=== PATIENT | male | born 1985 | race Caucasian/White ===

== ENCOUNTER 2017-02-07 18:50 | Emergency (ER) | payer BC ==
[2017-02-07 18:57] VITALS: BP 120/70
[2017-02-07] MEDS ORDERED: Tetan/Diph/Pertus SYR(Tdap)* 0.5 ML SYR(BOOSTRIX) use SYR IM ONE (19:39)
--- NOTE | 2017-02-07 20:40 | UC ---
Leonides Zavala Stephanie, scribed for Shawn Falcon MD on 02/07/17 at 2040 . Laceration HPI - HPI Summary HPI Summary: Pt is a 31 y/o M presenting to with a 1 cm laceration to his R 4th finger that occurred while using a mandolin. He reports his pain as a throbbing pain rated a 4 out of 10 in intensity. - History Of Current Complaint Chief Complaint: UCLaceration Stated Complaint: CUT FINGER Time Seen by Provider: 02/07/17 19:27 Hx Obtained From: Patient Laceration Location: Finger - R 4th finger Mechanism Of Injury: Sharp Trauma Onset/Duration: Sudden Onset Pain Intensity: 4 Pain Scale Used: 0-10 Numeric - Allergies/Home Medications Allergies/Adverse Reactions: Allergies Allergy/AdvReac Type Severity Reaction Status Date / Time No Known Allergies Allergy Verified 02/07/17 18:57 Home Medications: Home Medications Gzutabrlzoegc-Flzmejkmxp-Llema [Nyquil Severe Cold/Flu 5-6.25-10-325 mg/15Ml] 1 liq PO 02/07/17 [History] PMH/Surg Hx/FS Hx/Imm Hx Previously Healthy: Yes - Surgical History Surgical History: None - Family History Known Family History: Positive: Unknown - Pt denies family medical history when asked. - Social History Alcohol Use: Weekly Substance Use Type: None Smoking Status (MU): Never Smoked Tobacco Have You Smoked in the Last Year: No Review of Systems Skin: Other - skin on lacerated finger slightly discolored. Musculoskeletal: Other: All Other Systems Reviewed And Are Negative: Yes Physical Exam Triage Information Reviewed: Yes Vital Signs: Initial Vital Signs Temp 99.0 F 02/07/17 18:53 Pulse 94 02/07/17 18:53 Resp 18 02/07/17 18:53 BP 120/70 02/07/17 18:53 Pulse Ox 100 02/07/17 18:53 Vital Signs Reviewed: Yes - Additional Comments Tip of his finger has a circular laceration with the last 2 mm of fingertip being almost completely avulsed. Laceration Repair - Laceration Repair Adhesive Modified For Repair: No Cleansing Completed Via Routine Prep: Yes Closure Material: Skin Adhesive Suture Of: Skin Laceration Course/Dx - Course/Dx Course Of Treatment: CUT IS AN ALMOST COMPLETELY AVULSED PORTION OF THE FINGER TIP. NO EVIDENCE OF BONY INVOLVEMENT. LACERATION CLEANED, GLUED, DRESSED. TDAP GIVEN IN CLINIC. - Differential Dx - Laceration/Wound Provider Diagnoses: LACERATION RIGHT 4TH FINGER Discharge - Discharge Plan Condition: Stable Disposition: HOME Patient Education Materials: Laceration (ED), Finger Laceration (ED), Skin Adhesive Care (ED) Referrals: Hilario Borrego MD [Primary Care Provider] - Additional Instructions: FOLLOW UP WITH YOUR DOCTOR. YOU GOT YOUR TETANUS (TDAP) SHOT TODAY IN THE CLINIC. GET RECHECKED FOR ANY WORSENING OF YOUR CONDITION OR QUESTIONS OR CONCERNS. The documentation as recorded by the Leonides joe Stephanie accurately reflects the service I personally performed and the decisions made by me, Shawn Falcon MD.
== END 2017-02-07 20:18 | disposition home or self-care (01) ==
LOC: UCEAST 18:50
DX: S61.214A Laceration without foreign body of right ring finger without damage to nail, initial encounter (principal); W27.4XXA Contact with kitchen utensil, initial encounter; Y93.9 Activity, unspecified; Y92.9 Unspecified place or not applicable; Z23 Encounter for immunization
CPT/HCPCS: 12001; 90471; 90715; 99201; G0463